=== PATIENT | female | born 1990 | race Caucasian/White ===

== ENCOUNTER 2016-11-25 21:28 | Emergency (ER) | payer OTHER ==
[2016-11-25 21:33] VITALS: BMI 22.6
--- NOTE | 2016-11-25 21:33 | PDOC ---
Rapid Medical Evaluation Chief Complaint: Allergic Reaction Time Seen by Provider: 11/25/16 21:31 Medical Evaluation: Allergies Allergy/AdvReac Type Severity Reaction Status Date / Time amoxicillin Allergy Severe Rash Verified 11/25/16 21:31 Penicillins Allergy Severe Rash Verified 11/25/16 21:31 11/25/16 21:31 26 year old female who presents with hives. Ate shrimp prior to onset, but has never had shellfish allergy in past. Amox/PCN allergy. No new medications. No SOB, wheezing, sensation of throat tightness. Took 25mg Benadryl prior to arrival. Hives to body and face Lungs CTAB V/s unremarkable -To Main ED for further evaluation
--- NOTE | 2016-11-25 21:45 | PDOC ---
History of Present Illness - History of Present Illness Initial Comments: 11/25/16 22:07 Patient is a 26 year old female with no significant medical hx who is presenting to the ED with hives since today. Patient reports today she ate shrimp and broke out in hives all over her body. She states that she's never had a seafood allergy in the past; she ate shrimp several days ago and didn't have any reaction. The patient notes that she has allergies and will occasionally break out in hives. She took 25 mg of Benadryl prior to arrival with no relief. The patient carries an EpiPen on her due to allergies. Denies difficulty breathing, itchy scalp, throat pain, nausea, vomiting. Allergies: Amoxicillin, penicillin <Lulu Diego - Last Filed: 11/25/16 22:07> <Avi Larios - Last Filed: 11/25/16 22:58> - General Chief Complaint: Allergic Reaction Stated Complaint: ALLERGIC REACTION Time Seen by Provider: 11/25/16 21:31 Past History <Lulu Diego - Last Filed: 11/25/16 22:07> - Past Medical History Other medical history: denies - Immunization History Immunization Up to Date: Yes - Psycho/Social/Smoking Cessation Hx Suicidal Ideation: No Smoking History: Never smoked Hx Alcohol Use: No Drug/Substance Use Hx: No <Avi Larios - Last Filed: 11/25/16 22:58> - Past Medical History Allergies/Adverse Reactions: Allergies Allergy/AdvReac Type Severity Reaction Status Date / Time amoxicillin Allergy Severe Rash Verified 11/25/16 21:31 Penicillins Allergy Severe Rash Verified 11/25/16 21:31 Home Medications: Ambulatory Orders Famotidine [Pepcid -] 20 mg PO BID #14 tablet 11/25/16 Methylprednisolone [Medrol Dose Evans] 4 mg PO ASDIR #21 tablet 11/25/16 Review of Systems - Review of Systems Comments:: 11/25/16 22:11 GENERAL/CONSTITUTIONAL: No fever or chills. No weakness. HEAD, EYES, EARS, NOSE AND THROAT: No change in vision. No ear pain or discharge. No sore throat. CARDIOVASCULAR: No chest pain or shortness of breath. RESPIRATORY: No cough, wheezing, or hemoptysis. GASTROINTESTINAL: No nausea, vomiting, diarrhea or constipation. GENITOURINARY: No dysuria, frequency, or change in urination. MUSCULOSKELETAL: No joint or muscle swelling or pain. No neck or back pain. SKIN: Hives NEUROLOGIC: No headache, vertigo, loss of consciousness, or change in strength/ sensation. <Lulu Diego - Last Filed: 11/25/16 22:07> *Physical Exam - Vital Signs Last Vital Signs Temp Pulse Resp BP Pulse Ox 97.9 F 90 20 133/87 98 11/25/16 21:31 11/25/16 21:31 11/25/16 21:31 11/25/16 21:31 11/25/16 21:31 - Physical Exam Comments: 11/25/16 22:11 GENERAL: Awake, alert, and fully oriented, in no acute distress HEAD: No signs of trauma EYES: PERRLA, EOMI, sclera anicteric, conjunctiva clear ENT: Auricles normal inspection, hearing grossly normal, nares patent, oropharynx clear without exudates. Moist mucosa NECK: Normal ROM, supple, no lymphadenopathy, JVD, or masses LUNGS: Breath sounds equal, clear to auscultation bilaterally. No wheezes, and no crackles HEART: Regular rate and rhythm, normal S1 and S2, no murmurs, rubs or gallops ABDOMEN: Soft, nontender, normoactive bowel sounds. No guarding, no rebound. No masses EXTREMITIES: Normal range of motion, no edema. No clubbing or cyanosis. No cords, erythema, or tenderness NEUROLOGICAL: Cranial nerves II through XII grossly intact. Normal speech, normal gait SKIN: Covered from head to toe with urticaria. Warm, Dry, normal turgor, no lesions noted. ENDOCRINE: No increased thirst. No abnormal weight change. HEMATOLOGIC/LYMPHATIC: No anemia, easy bleeding, or history of blood clots. <Lulu Diego - Last Filed: 11/25/16 22:07> - Vital Signs Last Vital Signs Temp Pulse Resp BP Pulse Ox 97.9 F 90 20 133/87 98 11/25/16 21:31 11/25/16 21:31 11/25/16 21:31 11/25/16 21:31 11/25/16 21:31 <Avi Larios - Last Filed: 11/25/16 22:58> ED Treatment Course - Medications Given in the ED: ED Medications Discontinued Medications Generic Name Dose Route Start Last Admin Trade Name Abimbola PRN Reason Stop Dose Admin Diphenhydramine HCl 25 mg 11/25/16 21:50 11/25/16 22:04 Benadryl Injection - IVPUSH 11/25/16 21:51 25 mg ONCE ONE Administration Methylprednisolone Sodium Succinate 125 mg 11/25/16 21:50 11/25/16 22:04 Solu-Medrol - IVPB 11/25/16 21:51 125 mg ONCE ONE Administration <Lulu Diego - Last Filed: 11/25/16 22:07> *DC/Admit/Observation/Transfer - Attestations Scribe Attestion: 11/25/16 22:12 Documentation prepared by Lulu Diego, acting as medical chief technician for Avi Larios MD. <Lulu Diego - Last Filed: 11/25/16 22:07> - Discharge Dispostion Admit: No - Attestations Physician Attestion: 11/25/16 21:45 I, Dr. Avi Larios, attest that this document has been prepared under my direction and personally reviewed by me in its entirety. I further attest, that it accurately reflects all work, treatment, procedures and medical decision -making performed by me. <Avi Larios - Last Filed: 11/25/16 22:58> Diagnosis at time of Disposition: Allergy to shrimp - Discharge Dispostion Disposition: HOME Condition at time of disposition: Good - Prescriptions Prescriptions: Methylprednisolone [Medrol Dose Evans] 4 mg PO ASDIR #21 tablet Famotidine [Pepcid -] 20 mg PO BID #14 tablet - Referrals Referrals: Anthony Otero v [Primary Care Provider] - - Patient Instructions Printed Discharge Instructions: DI for General Allergic Reactions Additional Instructions: Prachi- It was a pleasure to care for you. Carry your epi pen, Medrol Dose Pack and Pepcid, went directly to your pharmacy. No more shrimp. Best- Dr. Avi Larios
[2016-11-25] MEDS ORDERED: methylPREDNISolone NA SUCC 125 MG/2 ML VIAL IVPB ONE (21:50)
[2016-11-25] MEDS ORDERED: methylPREDNISolone NA SUCC 125 MG/2 ML VIAL ONE (21:50)
[2016-11-25] MEDS ORDERED: FAMOTIDINE 20 MG/50 ML IVPB 50 ML IVPB ONE ×2 (21:50)
[2016-11-25 23:10] VITALS: BP 105/69; PULSE 68; TEMP 98.7
== END 2016-11-25 23:15 | disposition home or self-care (01) ==
LOC: JER 21:28
PROC: 3E033GC Introduction of Other Therapeutic Substance into Peripheral Vein, Percutaneous Approach (ICD-10-PCS; principal; 2016-11-25)
PROC: 3E0333Z Introduction of Anti-inflammatory into Peripheral Vein, Percutaneous Approach (ICD-10-PCS; 2016-11-25)
PROC: 3E033GC Introduction of Other Therapeutic Substance into Peripheral Vein, Percutaneous Approach (ICD-10-PCS; 2016-11-25)
DX: T78.1XXA Other adverse food reactions, not elsewhere classified, initial encounter (principal); L50.0 Allergic urticaria; Z91.013 Allergy to seafood
CPT/HCPCS: 84703; 99282-25